=== PATIENT | male | born 1955 | race Two or more races ===

== ENCOUNTER 2017-02-19 11:31 | Emergency (ER) | payer MEDICARE, OTHER ==
[~2017-02-19] VITALS: Ht 170.2 cm; Wt 80.0 kg
[~2017-02-19 11:31] MED LIST: ACET-2119 PO; ASPI-1265 PO; ASPI1CPM9 PO; CALC-212 PO; CARV3.122 PO; CHOL10002 PO; CHOL100040 PO; CLOP75TA15 PO; FA/M1TAB; FLO0.4C PO; FURO40TA4 PO; FURO80TA3 PO; GLIP5TAB13 PO; HUM7525 SQ; HYDR-3965 PO; INSU100V12 SQ; INSULIN LISPRO SUBCUT; LACT10SO PO; LANTUS SQ; LYR75C PO; MIDO2.5T14 PO; NIA500ERT PO; ONDA4TAB9 SL; PANT-47 PO; PHO667C PO; POLY17PO10 PO; PRAV80TA3 PO; PREG300C PO; SODI325T PO; SODI650T29 PO; TACR0.5C20 PO; TACR5CAP8 PO
[2017-02-19 12:20] LABS: ALBUMIN 2.9 G/DL (3.4-5.0); ANION GAP 4 (8-16); BLOOD UREA NITROGEN 12 MG/DL (7-18); BUN/CREATININE RATIO 3.4 (5.4-32.0); CALCIUM 9.5 MG/DL (8.5-10.1); CHLORIDE 104 MMOL/L (99-107); CREATININE 3.58 MG/DL (0.60-1.10); GLUCOSE 52 MG/DL (70-104); POTASSIUM 3.7 MMOL/L (3.5-5.1); SODIUM 144 MMOL/L (135-145); TOTAL CARBON DIOXIDE 36.5 MMOL/L (24-32); eGFR 17 ML/MIN
[2017-02-19 12:32] LABS: BASOPHILS % (AUTO) 0.4 % (0-1); EOSINOPHILS # (AUTO) 0.2 X10'3 (0-0.9); EOSINOPHILS % (AUTO) 4.1 % (0-6); HEMATOCRIT 33.1 % (42.0-52.0); HEMOGLOBIN 10.8 g/dl (14.0-17.9); LYMPHOCYTES % (AUTO) 19.5 % (21-51); MEAN CORPUSCULAR HEMOGLOBIN 30.8 PG (27.0-31.0); MEAN CORPUSCULAR HGB CONC 32.6 % (33.0-36.5); MEAN CORPUSCULAR VOLUME 94.6 FL (78-98); MEAN PLATELET VOLUME 10.1 FL (7.4-10.4); MONOCYTES # (AUTO) 0.5 X10'3 (0-0.9); MONOCYTES % (AUTO) 10.4 % (2-12); NEUTROPHILS # (AUTO) 3.3 X10'3 (1.8-7.7); NEUTROPHILS % (AUTO) 65.6 % (42-75); PLATELET COUNT 102 X10'3 (140-440); RED CELL DISTRIBUTION WIDTH 16.8 % (11.5-14.5); WHITE BLOOD COUNT 5.1 X10'3 (4.5-11.0)
[2017-02-19] MEDS ORDERED: ipratropium/albuterol 3ml nebule NEB ONE (12:55)
[2017-02-19 13:59] VITALS: BP 132/57
== END 2017-02-19 14:00 | disposition home or self-care (01) ==
LOC: ER 11:32
DX: J98.01 Acute bronchospasm (principal); I12.0 Hypertensive chronic kidney disease with stage 5 chronic kidney disease or end stage renal disease; N18.6 End stage renal disease; E11.22 Type 2 diabetes mellitus with diabetic chronic kidney disease; K21.9 Gastro-esophageal reflux disease without esophagitis; I25.10 Atherosclerotic heart disease of native coronary artery without angina pectoris; Z86.73 Personal history of transient ischemic attack (TIA), and cerebral infarction without residual deficits; Z94.0 Kidney transplant status; Z95.1 Presence of aortocoronary bypass graft; Z99.2 Dependence on renal dialysis; Z88.8 Allergy status to other drugs, medicaments and biological substances; Z88.1 Allergy status to other antibiotic agents; Z91.013 Allergy to seafood; Z79.4 Long term (current) use of insulin; Z79.82 Long term (current) use of aspirin
CPT/HCPCS: 36415; 71045; 80048; 85025; 94640; 94760; 99285

== ENCOUNTER 2017-03-01 09:28 | Inpatient (IN) | payer MEDICARE, OTHER ==
[~2017-03-01] VITALS: Ht 172.7 cm; Wt 180.0 kg
[2017-03-01] MEDS ORDERED: normal saline 1000ml 1,000 ML IV ONE (09:59)
[2017-03-01 10:37] LABS: BASOPHILS % (AUTO) 0.3 % (0-1); EOSINOPHILS # (AUTO) 0.1 X10'3 (0-0.9); EOSINOPHILS % (AUTO) 0.5 % (0-6); HEMATOCRIT 29.5 % (42.0-52.0); HEMOGLOBIN 10.3 g/dl (14.0-17.9); LYMPHOCYTES # (AUTO) 0.4 X10'3 (1.1-4.8); MEAN CORPUSCULAR HEMOGLOBIN 32.5 PG (27.0-31.0); MEAN CORPUSCULAR HGB CONC 34.8 % (33.0-36.5); MEAN CORPUSCULAR VOLUME 93.6 FL (78-98); MEAN PLATELET VOLUME 10.1 FL (7.4-10.4); MONOCYTES # (AUTO) 0.8 X10'3 (0-0.9); NEUTROPHILS # (AUTO) 10.7 X10'3 (1.8-7.7); NEUTROPHILS % (AUTO) 89.2 % (42-75); PLATELET COUNT 119 X10'3 (140-440); RED BLOOD COUNT 3.16 X10'6 (4.70-6.10); RED CELL DISTRIBUTION WIDTH 15.8 % (11.5-14.5)
[2017-03-01 10:41] LABS: INR 1.1 INR; PARTIAL THROMBOPLASTIN TIME 34 SECONDS (22-32); PROTHROMBIN TIME 11.4 SECONDS (9.0-12.0)
[2017-03-01 10:55] LABS: ALANINE AMINOTRANSFERASE 17 U/L (12-78); ALBUMIN 2.5 G/DL (3.4-5.0); ALBUMIN/GLOBULIN RATIO 0.5 (1.1-1.5); ALKALINE PHOSPHATASE 90 IU/L (46-116); ANION GAP 7 (8-16); ASPARTATE AMINO TRANSFERASE 13 U/L (10-37); BILIRUBIN,TOTAL 0.5 MG/DL (0.1-1.0); BLOOD UREA NITROGEN 16 MG/DL (7-18); BUN/CREATININE RATIO 4.2 (5.4-32.0); CALCIUM 8.9 MG/DL (8.5-10.1); CHLORIDE 107 MMOL/L (99-107); ETHANOL < 0.010 GM/DL (0.0-0.010); GLUCOSE 96 MG/DL (70-104); MAGNESIUM 2.2 MG/DL (1.5-2.4); PHOSPHORUS 1.8 MG/DL (2.3-4.5); POTASSIUM 3.8 MMOL/L (3.5-5.1); SODIUM 148 MMOL/L (135-145); TOTAL CARBON DIOXIDE 34.1 MMOL/L (24-32); TOTAL PROTEIN 7.2 G/DL (6.4-8.2); eGFR 16 ML/MIN
[2017-03-01 10:58] LABS: ACETAMINOPHEN < 2.0 UG/ML (10-30)
[2017-03-01 11:17] LABS: ABG BASE EXCESS 8.9 mmol/L (-2.0-3.0); ABG HCO3 32.9 mmol/L (22.0-26.0); ABG OXYGEN SATURATION 95.4 % (95-98); ABG PCO2 (T) 43.2 mmHg (35.0-48.0); ABG PO2 (T) 77.7 mmHg (83-108); ALLEN'S TEST Positive; FCOHb 0.2 % (0.5-1.5); FLOW 2 L/min; FMetHb 0.2 % (0.3-1.12); TOTAL HEMOGLOBIN 10.6 G/dl (14.0-18.0)
[2017-03-01] MEDS ORDERED: vancomycin/NS 1 GM ADD-VANTAGE 250 ML IV ONE (11:25)
[2017-03-01] MEDS ORDERED: normal saline 1000ML IV soln IVB ONE (11:25)
[2017-03-01 12:05] LABS: COLOR,URINE Yellow (Yellow); GLUCOSE, URINE Negative (Neg); KETONES,URINE Negative (Neg); LEUKOCYTE ESTERASE ,URINE Moderate (Neg); NITRITES, URINE Negative (Neg); OCCULT BLOOD,URINE Small (Neg); PH,URINE >=9.0 (4.8-8.0); PROTEIN,URINE 100 mg/dl (Neg); UROBILINOGEN,URINE 0.2 E.U/dL (0.2-1.0)
[2017-03-01 12:09] LABS: URINE AMPHETAMINE SCREEN NEGATIVE (Neg); URINE BARBITUATE SCREEN NEGATIVE (Neg); URINE BENZODIAZEPINES SCREEN NEGATIVE (Neg); URINE CANNABINOID SCREEN NEGATIVE (Neg); URINE COCAINE SCREEN NEGATIVE (Neg); URINE METHADONE SCREEN NEGATIVE (Neg); URINE OPIATE SCREEN NEGATIVE (Neg); URINE PHENCYCLIDINE SCREEN NEGATIVE (Neg)
[2017-03-01 12:24] LABS: OCCULT BLOOD STOOL NEGATIVE (Neg)
[2017-03-01 12:27] LABS: CLARITY,URINE Slightly Cloudy (Clear); UA COLLECTION TYPE FOLEY CATH
[2017-03-01 12:29] LABS: BACTERIA,URINE FEW /HPF (Neg); MUCUS STRANDS FEW /LPF (Neg); RBC,URINE 0-2 /HPF (0-2); SQUAMOUS EPITHELIAL CELL,UR FEW /LPF (FEW)
[2017-03-01 12:30] LABS: TRANSITIONAL EPI CELLS,URINE FEW /HPF
[2017-03-01] MEDS ORDERED: acetaminophen 325mg tablet PO PRN (13:05)
[2017-03-01] MEDS ORDERED: HYDROmorphone 1 mg/ml syringe IV PRN (13:05)
[2017-03-01] MEDS ORDERED: bisacodyl 10mg suppository rectal RC PRN (13:05)
[2017-03-01] MEDS ORDERED: diphenhydrAMINE 25mg capsule PO PRN (13:05)
[2017-03-01] MEDS ORDERED: HYDROcodone/acetaminophen 5mg/325mg tablet PO PRN (13:05)
[2017-03-01] MEDS ORDERED: ondansetron/PF 4mg/2ml inj IV PRN (13:05)
[2017-03-01] MEDS ORDERED: levoFLOXACIN-Levaquin 250mg/D5 50 ML IV STA (13:08)
[2017-03-01] MEDS ORDERED: SEVE800T8 PO (13:46)
[2017-03-01] MEDS ORDERED: ALB0.5UD IH (13:46)
[2017-03-01] MEDS ORDERED: POLY17PO10 PO (14:44)
[2017-03-01] MEDS ORDERED: FA/M1TAB (14:44)
[2017-03-01] MEDS ORDERED: dextrose 50%-water 50ml dispensing syringe IV ONE ×2 (15:13→15:25)
[2017-03-01] MEDS ORDERED: sodium chloride inj. 154 MEQ in Dextrose 10%-water IV solution 961.5 ML IV SCH (15:35)
[2017-03-01] MEDS: Dextrose 10%-water IV solution 1,000 ML IV SCH (16:03)
[2017-03-01] MEDS ORDERED: morphine 2 MG/ML inj. syringe IV PRN (17:05)
[2017-03-01] MEDS: docusate sod 100mg capsule PO SCH (20:00)
[2017-03-01] MEDS ORDERED: polyethylene glycol 3350 17gm powd pack PO PRN (20:15)
[2017-03-01] MEDS ORDERED: glucagon, human recombinant 1mg kit SUBCUT PRN (20:15)
[2017-03-01] MEDS ORDERED: dextrose 50%-water 50ml dispensing syringe IV PRN ×2 (20:15)
[2017-03-01] MEDS ORDERED: MESSAGE TO PHARMACY PO ONE (20:15)
[2017-03-01] MEDS ORDERED: dextrose ORAL solution 15 GM/59 ML bottle PO PRN ×2 (20:15)
[2017-03-01] MEDS ORDERED: non-formulary drug (Albuterol Sulfate Nebs* (Proventil Nebs*) 2.5 MG) IH PRN (20:15)
[2017-03-01] MEDS ORDERED: temazepam 15mg capsule PO PRN (21:00)
[2017-03-01] MEDS: insulin glargine (Lantus) pen - multi-dose SQ SCH (21:00)
[2017-03-01] MEDS: atorvastatin 20mg tablet PO SCH (21:00)
[2017-03-01] MEDS ORDERED: FUROSEMIDE 80 MG PO SCH (21:00)
[2017-03-01] MEDS ORDERED: non-formulary drug (Pravastatin Sodium 1 TAB) PO SCH (21:00)
[2017-03-01] MEDS: midodrine tablet 2.5 MG TABLET PO SCH (22:33)
[2017-03-01] MEDS: furosemide 40mg tablet PO SCH (22:33)
[2017-03-01] MEDS: tacrolimus anhydrous 0.5mg capsule PO SCH (22:34)
[2017-03-02] MEDS ORDERED: midodrine tablet 2.5 MG TABLET PO SCH (02:00)
[2017-03-02] MEDS ORDERED: MIDODRINE HCL 5 MG PO SCH (02:00)
[2017-03-02] MEDS: midodrine tablet 2.5 MG TABLET PO SCH ×5 (02:00→20:25)
[2017-03-02 07:14] LABS: BASOPHILS % (AUTO) 0.5 % (0-1); EOSINOPHILS # (AUTO) 0.1 X10'3 (0-0.9); HEMOGLOBIN 9.3 g/dl (14.0-17.9); LYMPHOCYTES # (AUTO) 0.7 X10'3 (1.1-4.8); MEAN CORPUSCULAR HEMOGLOBIN 31.2 PG (27.0-31.0); MEAN CORPUSCULAR HGB CONC 33.1 % (33.0-36.5); MEAN CORPUSCULAR VOLUME 94.2 FL (78-98); MEAN PLATELET VOLUME 9.7 FL (7.4-10.4); MONOCYTES # (AUTO) 0.7 X10'3 (0-0.9); MONOCYTES % (AUTO) 11.7 % (2-12); NEUTROPHILS # (AUTO) 4.1 X10'3 (1.8-7.7); NEUTROPHILS % (AUTO) 72.8 % (42-75); PLATELET COUNT 112 X10'3 (140-440); RED BLOOD COUNT 2.98 X10'6 (4.70-6.10); RED CELL DISTRIBUTION WIDTH 17.6 % (11.5-14.5); WHITE BLOOD COUNT 5.6 X10'3 (4.5-11.0)
[2017-03-02 07:31] LABS: ALBUMIN 2.2 G/DL (3.4-5.0); ANION GAP 7 (8-16); BLOOD UREA NITROGEN 22 MG/DL (7-18); BUN/CREATININE RATIO 4.7 (5.4-32.0); CALCIUM 9.5 MG/DL (8.5-10.1); CHLORIDE 108 MMOL/L (99-107); GLUCOSE 153 MG/DL (70-104); MAGNESIUM 2.2 MG/DL (1.5-2.4); PHOSPHORUS 3.4 MG/DL (2.3-4.5); SODIUM 146 MMOL/L (135-145); TOTAL CARBON DIOXIDE 31.1 MMOL/L (24-32); eGFR 13 ML/MIN
[2017-03-02] MEDS: levoFLOXACIN-Levaquin 250mg/D5 50 ML IV SCH (07:53)
[2017-03-02] MEDS: sodium bicarbonate 650mg tablet PO SCH ×2 (07:54→20:28)
[2017-03-02] MEDS: aspirin/dipyridamole 25mg/200mg SR. capsule PO SCH ×2 (07:55→20:28)
[2017-03-02] MEDS: tacrolimus anhydrous 0.5mg capsule PO SCH ×2 (07:58→20:26)
[2017-03-02] MEDS ORDERED: non-formulary drug (Pregabalin (Lyrica) 1 CAP) PO SCH (08:00)
[2017-03-02] MEDS ORDERED: epoetin 20,000 units/ml inj IV ONE ×2 (08:00→11:30)
[2017-03-02] MEDS ORDERED: tacrolimus anhydrous 0.5mg capsule PO SCH (08:00)
[2017-03-02] MEDS ORDERED: albumin (human) 25% 100ml IV 100 ML IV PRN (08:00)
[2017-03-02] MEDS: sevelamer carbonate 800mg tablet PO SCH ×3 (08:00→17:00)
[2017-03-02] MEDS ORDERED: non-formulary drug (Cholecalciferol (Vitamin D3) (Vitamin D3) 1 TAB) PO SCH (08:00)
[2017-03-02] MEDS: vitamin D (cholecalciferol) 1,000 unit tablet PO SCH (08:12)
[2017-03-02] MEDS: docusate sod 100mg capsule PO SCH ×2 (08:12→20:26)
[2017-03-02] MEDS: tamsulosin 0.4mg capsule PO SCH ×2 (08:12→20:48)
[2017-03-02] MEDS: furosemide 40mg tablet PO SCH ×3 (08:12→20:26)
[2017-03-02] MEDS: pregabalin 75mg capsule PO SCH ×2 (08:14→20:27)
[2017-03-02] MEDS: pantoprazole 40mg Tablet.DR PO SCH (08:14)
[2017-03-02] MEDS: Dextrose 10%-water IV solution 1,000 ML IV SCH ×2 (09:04→12:19)
[2017-03-02 09:30] VITALS: BP 146/76
[2017-03-02] MEDS ORDERED: LIDOcaine 1% (10mg/ml) 2ml vial SQ ONE (09:45)
[2017-03-02] MEDS: albuterol 2.5 MG/3 ML nebule NEB PRN (10:02)
[2017-03-02 11:00] VITALS: BP 112/48
[2017-03-02 15:00] VITALS: BP 112/58
[2017-03-02 15:24] VITALS: BP 117/51
[2017-03-02] MEDS: lactobacillus rhamnosus 10,000 MMU CELLS/CAPSULE PO SCH (17:30)
[2017-03-02 19:00] VITALS: BP 133/75
[2017-03-02] MEDS: atorvastatin 20mg tablet PO SCH (20:26)
[2017-03-02] MEDS: insulin glargine (Lantus) pen - multi-dose SQ SCH (21:00)
[2017-03-02 22:00] VITALS: BP 120/57
[2017-03-03] MEDS: midodrine tablet 2.5 MG TABLET PO SCH ×4 (02:00→20:03)
[2017-03-03 03:00] VITALS: BP 93/58
[2017-03-03 06:00] VITALS: BP 123/64
[2017-03-03] MEDS: sevelamer carbonate 800mg tablet PO SCH ×3 (07:00→17:51)
[2017-03-03 07:01] LABS: BASOPHILS % (AUTO) 0.3 % (0-1); EOSINOPHILS # (AUTO) 0.2 X10'3 (0-0.9); EOSINOPHILS % (AUTO) 2.7 % (0-6); HEMATOCRIT 26.1 % (42.0-52.0); LYMPHOCYTES # (AUTO) 1.1 X10'3 (1.1-4.8); LYMPHOCYTES % (AUTO) 19.9 % (21-51); MEAN CORPUSCULAR HEMOGLOBIN 31.5 PG (27.0-31.0); MEAN CORPUSCULAR HGB CONC 34.3 % (33.0-36.5); MEAN CORPUSCULAR VOLUME 91.7 FL (78-98); MEAN PLATELET VOLUME 10.3 FL (7.4-10.4); MONOCYTES # (AUTO) 0.7 X10'3 (0-0.9); MONOCYTES % (AUTO) 13.6 % (2-12); NEUTROPHILS # (AUTO) 3.5 X10'3 (1.8-7.7); NEUTROPHILS % (AUTO) 63.5 % (42-75); PLATELET COUNT 116 X10'3 (140-440); RED BLOOD COUNT 2.85 X10'6 (4.70-6.10); RED CELL DISTRIBUTION WIDTH 17.6 % (11.5-14.5); WHITE BLOOD COUNT 5.5 X10'3 (4.5-11.0)
[2017-03-03 07:22] LABS: ALBUMIN 2.3 G/DL (3.4-5.0); ANION GAP 6 (8-16); BLOOD UREA NITROGEN 17 MG/DL (7-18); BUN/CREATININE RATIO 4.6 (5.4-32.0); CALCIUM 9.1 MG/DL (8.5-10.1); CHLORIDE 103 MMOL/L (99-107); GLUCOSE 283 MG/DL (70-104); PHOSPHORUS 2.3 MG/DL (2.3-4.5); POTASSIUM 3.9 MMOL/L (3.5-5.1); SODIUM 140 MMOL/L (135-145); eGFR 17 ML/MIN
[2017-03-03] MEDS: docusate sod 100mg capsule PO SCH ×2 (08:42→20:02)
[2017-03-03] MEDS: tamsulosin 0.4mg capsule PO SCH ×2 (08:42→20:32)
[2017-03-03] MEDS: tacrolimus anhydrous 0.5mg capsule PO SCH ×2 (08:43→20:03)
[2017-03-03] MEDS: furosemide 40mg tablet PO SCH ×3 (08:43→20:03)
[2017-03-03] MEDS: pantoprazole 40mg Tablet.DR PO SCH (08:43)
[2017-03-03] MEDS: aspirin/dipyridamole 25mg/200mg SR. capsule PO SCH ×2 (08:43→20:02)
[2017-03-03] MEDS: vitamin D (cholecalciferol) 1,000 unit tablet PO SCH (08:43)
[2017-03-03] MEDS: lactobacillus rhamnosus 10,000 MMU CELLS/CAPSULE PO SCH ×2 (08:43→17:51)
[2017-03-03] MEDS: pregabalin 75mg capsule PO SCH ×2 (08:44→20:02)
[2017-03-03] MEDS: sodium bicarbonate 650mg tablet PO SCH ×2 (08:44→20:03)
[2017-03-03] MEDS: levoFLOXACIN-Levaquin 250mg/D5 50 ML IV SCH (08:44)
[2017-03-03] MEDS: albuterol 2.5 MG/3 ML nebule NEB PRN (09:03)
[2017-03-03 11:00] VITALS: BP 137/59
[2017-03-03] MEDS: insulin Lispro (HumaLOG) vial - multi-dose SQ SCH ×2 (14:14→20:08)
[2017-03-03 15:00] VITALS: BP 159/65
[2017-03-03 19:00] VITALS: BP 155/71
[2017-03-03] MEDS: atorvastatin 20mg tablet PO SCH (20:02)
[2017-03-03 21:00] VITALS: BP 156/71
[2017-03-03] MEDS: insulin glargine (Lantus) pen - multi-dose SQ SCH (21:38)
[2017-03-04] MEDS: midodrine tablet 2.5 MG TABLET PO SCH ×3 (01:38→12:38)
[2017-03-04 03:00] VITALS: BP 152/68
[2017-03-04 06:00] VITALS: BP 133/69
[2017-03-04 06:30] LABS: BASOPHILS % (AUTO) 0.3 % (0-1); EOSINOPHILS # (AUTO) 0.2 X10'3 (0-0.9); EOSINOPHILS % (AUTO) 3.2 % (0-6); HEMOGLOBIN 9.2 g/dl (14.0-17.9); LYMPHOCYTES # (AUTO) 1.1 X10'3 (1.1-4.8); LYMPHOCYTES % (AUTO) 17.7 % (21-51); MEAN CORPUSCULAR HEMOGLOBIN 30.9 PG (27.0-31.0); MEAN CORPUSCULAR VOLUME 93.9 FL (78-98); MONOCYTES # (AUTO) 0.8 X10'3 (0-0.9); MONOCYTES % (AUTO) 12.8 % (2-12); PLATELET COUNT 111 X10'3 (140-440); RED BLOOD COUNT 2.99 X10'6 (4.70-6.10); WHITE BLOOD COUNT 6.1 X10'3 (4.5-11.0)
[2017-03-04] MEDS: sevelamer carbonate 800mg tablet PO SCH ×3 (07:00→12:38)
[2017-03-04 07:04] LABS: ANION GAP 8 (8-16); BLOOD UREA NITROGEN 27 MG/DL (7-18); CHLORIDE 105 MMOL/L (99-107); GLUCOSE 211 MG/DL (70-104); POTASSIUM 3.9 MMOL/L (3.5-5.1); SODIUM 144 MMOL/L (135-145); TOTAL CARBON DIOXIDE 30.7 MMOL/L (24-32)
[2017-03-04 07:05] LABS: ALBUMIN 2.3 G/DL (3.4-5.0); CALCIUM 9.5 MG/DL (8.5-10.1); MAGNESIUM 2.1 MG/DL (1.5-2.4); PHOSPHORUS 3.1 MG/DL (2.3-4.5); eGFR 13 ML/MIN
[2017-03-04] MEDS: vitamin D (cholecalciferol) 1,000 unit tablet PO SCH (08:00)
[2017-03-04] MEDS ORDERED: normal saline 1000ml 250 ML IV PRN (09:19)
[2017-03-04] MEDS ORDERED: epoetin 20,000 units/ml inj IV ONE (09:20)
[2017-03-04] MEDS ORDERED: heparin 1,000 units/ml 10ml inj IV ONE (09:20)
[2017-03-04] MEDS ORDERED: LIDOcaine 1% (10mg/ml) 2ml vial SQ ONE (09:20)
[2017-03-04] MEDS: lactobacillus rhamnosus 10,000 MMU CELLS/CAPSULE PO SCH (09:32)
[2017-03-04] MEDS: tacrolimus anhydrous 0.5mg capsule PO SCH (09:33)
[2017-03-04] MEDS: furosemide 40mg tablet PO SCH ×2 (09:33→12:33)
[2017-03-04] MEDS: docusate sod 100mg capsule PO SCH (09:34)
[2017-03-04] MEDS: sodium bicarbonate 650mg tablet PO SCH (09:34)
[2017-03-04] MEDS: tamsulosin 0.4mg capsule PO SCH (09:34)
[2017-03-04] MEDS: pregabalin 75mg capsule PO SCH (09:34)
[2017-03-04] MEDS: pantoprazole 40mg Tablet.DR PO SCH (09:34)
[2017-03-04] MEDS: levoFLOXACIN-Levaquin 250mg/D5 50 ML IV SCH (09:35)
[2017-03-04] MEDS: aspirin/dipyridamole 25mg/200mg SR. capsule PO SCH (09:44)
[2017-03-04] MEDS: insulin Lispro (HumaLOG) vial - multi-dose SQ SCH ×2 (09:56→12:45)
[2017-03-04 11:00] VITALS: BP 92/47
== END 2017-03-04 16:20 | disposition home health service (06) | DRG 637 ==
LOC: ER 09:28 → ED HOLD 13:04 → EDBEDREQSVC 18:43 → PCU 3S 03-02 08:59
PROVIDERS: ADMIT Internal Medicine Critical Care Medicine; ATTEND Internal Medicine Critical Care Medicine
PROC: 5A1D70Z Performance of Urinary Filtration, Intermittent, Less than 6 Hours Per Day (ICD-10-PCS; 2017-03-02)
PROC: 5A09357 Assistance with Respiratory Ventilation, Less than 24 Consecutive Hours, Continuous Positive Airway Pressure (ICD-10-PCS; principal; 2017-03-03)
PROC: 5A1D70Z Performance of Urinary Filtration, Intermittent, Less than 6 Hours Per Day (ICD-10-PCS; 2017-03-04)
DX: E11.649 Type 2 diabetes mellitus with hypoglycemia without coma (principal); G93.41 Metabolic encephalopathy; E87.3 Alkalosis; J18.9 Pneumonia, unspecified organism; T86.12 Kidney transplant failure; E11.22 Type 2 diabetes mellitus with diabetic chronic kidney disease; I12.0 Hypertensive chronic kidney disease with stage 5 chronic kidney disease or end stage renal disease; Z68.44 Body mass index [BMI] 60.0-69.9, adult; N18.6 End stage renal disease; K21.9 Gastro-esophageal reflux disease without esophagitis; E66.9 Obesity, unspecified; D64.9 Anemia, unspecified; I25.10 Atherosclerotic heart disease of native coronary artery without angina pectoris; Z99.2 Dependence on renal dialysis; Z95.1 Presence of aortocoronary bypass graft; Z91.013 Allergy to seafood; Z88.8 Allergy status to other drugs, medicaments and biological substances; Z91.018 Allergy to other foods; Z79.82 Long term (current) use of aspirin; Z79.4 Long term (current) use of insulin; Z79.899 Other long term (current) drug therapy; Z86.73 Personal history of transient ischemic attack (TIA), and cerebral infarction without residual deficits; Y92.89 Other specified places as the place of occurrence of the external cause; Y83.0 Surgical operation with transplant of whole organ as the cause of abnormal reaction of the patient, or of later complication, without mention of misadventure at the time of the procedure
CPT/HCPCS: 36415; 36600; 70450; 71045; 80048; 80053; 80305; 80320; 80329; 81001; 82272; 82803; 82948; 83036; 83605; 83735; 84100; 84443; 84484; 85018; 85025; 85610; 85730; 86885; 86900; 86901; 87040; 87070; 87088; 87502; 87503; 92616; 93005; 94640; 94760; 96361; 96365; 99291; A6212; A6213; A6402; A6449; C1758; G0257; J0885; J1644; J1815; J1956; J3370; J3490; J7030; J7131; J7507

== ENCOUNTER 2018-01-29 12:20 | Emergency (ER) | payer MEDICARE, OTHER ==
[~2018-01-29] VITALS: Ht 172.7 cm; Wt 82.0 kg
[~2018-01-29 12:20] MED LIST changes: -ACET-2119 PO; +ALB0.5UD IH; -ASPI-1265 PO; -CALC-212 PO; -CARV3.122 PO; -CHOL100040 PO; -CLOP75TA15 PO; -FURO40TA4 PO; -GLIP5TAB13 PO; -HYDR-3965 PO; -INSULIN LISPRO SUBCUT; -LACT10SO PO; -LANTUS SQ; -LYR75C PO; -NIA500ERT PO; -ONDA4TAB9 SL; -PHO667C PO; +SEVE800T8 PO; -SODI325T PO; -TACR5CAP8 PO
[2018-01-29] MEDS ORDERED: ipratropium/albuterol 3ml nebule NEB ONE (12:40)
[2018-01-29 13:18] LABS: BASOPHILS % (AUTO) 0.4 % (0-1); EOSINOPHILS # (AUTO) 0.5 X10'3 (0-0.9); EOSINOPHILS % (AUTO) 9.2 % (0-6); HEMOGLOBIN 11.9 g/dl (14.0-17.9); LYMPHOCYTES % (AUTO) 20.6 % (21-51); MEAN CORPUSCULAR HEMOGLOBIN 32.6 PG (27.0-31.0); MEAN CORPUSCULAR VOLUME 98.9 FL (78-98); MONOCYTES # (AUTO) 0.5 X10'3 (0-0.9); MONOCYTES % (AUTO) 9.9 % (2-12); NEUTROPHILS # (AUTO) 2.9 X10'3 (1.8-7.7); NEUTROPHILS % (AUTO) 59.9 % (42-75); PLATELET COUNT 89 X10'3 (140-440); RED BLOOD COUNT 3.65 X10'6 (4.70-6.10); RED CELL DISTRIBUTION WIDTH 14.9 % (11.5-14.5); WHITE BLOOD COUNT 4.9 X10'3 (4.5-11.0)
[2018-01-29 13:34] LABS: ALANINE AMINOTRANSFERASE 19 U/L (12-78); ALBUMIN 3.4 G/DL (3.4-5.0); ALBUMIN/GLOBULIN RATIO 0.8 (1.1-1.5); ALKALINE PHOSPHATASE 114 IU/L (46-116); ANION GAP 8 (8-16); ASPARTATE AMINO TRANSFERASE 11 U/L (10-37); BILIRUBIN,TOTAL 0.4 MG/DL (0.1-1.0); BLOOD UREA NITROGEN 25 MG/DL (7-18); BUN/CREATININE RATIO 5.6 (5.4-32.0); CALCIUM 9.2 MG/DL (8.5-10.1); CHLORIDE 99 MMOL/L (99-107); CREATININE 4.49 MG/DL (0.60-1.10); GLUCOSE 174 MG/DL (70-104); POTASSIUM 4.9 MMOL/L (3.5-5.1); PROTHROMBIN TIME 10.6 SECONDS (9.0-12.0); SODIUM 138 MMOL/L (135-145); TOTAL CARBON DIOXIDE 30.9 MMOL/L (24-32); TOTAL PROTEIN 7.8 G/DL (6.4-8.2); eGFR 13 ML/MIN
[2018-01-29 13:36] LABS: LACTIC SEPSIS 1.1 MMOL/L (0.4-2.0)
[2018-01-29 13:43] LABS: ETHANOL < 0.010 GM/DL (0.0-0.010)
[2018-01-29 14:59] VITALS: BP 102/47
== END 2018-01-29 17:11 | disposition home or self-care (01) ==
LOC: ER 12:21
DX: R06.02 Shortness of breath (principal); I25.10 Atherosclerotic heart disease of native coronary artery without angina pectoris; K21.9 Gastro-esophageal reflux disease without esophagitis; I12.0 Hypertensive chronic kidney disease with stage 5 chronic kidney disease or end stage renal disease; E11.22 Type 2 diabetes mellitus with diabetic chronic kidney disease; N18.6 End stage renal disease; F41.9 Anxiety disorder, unspecified; Z88.8 Allergy status to other drugs, medicaments and biological substances; Z91.013 Allergy to seafood; Z91.018 Allergy to other foods; Z79.82 Long term (current) use of aspirin; Z79.4 Long term (current) use of insulin; Z79.899 Other long term (current) drug therapy; Z99.2 Dependence on renal dialysis; Z86.73 Personal history of transient ischemic attack (TIA), and cerebral infarction without residual deficits; Z87.891 Personal history of nicotine dependence
CPT/HCPCS: 36415; 71045; 80053; 80320; 82140; 83605; 84443; 84484; 85025; 85610; 87040; 93005; 94640; 94760; 99284

== ENCOUNTER 2018-04-16 08:46 | Day surgery (SDC) | payer MEDICARE, OTHER ==
[~2018-04-16] VITALS: Ht 170.2 cm; Wt 78.0 kg
[2018-04-16 09:00] VITALS: BP 141/83
[2018-04-16] MEDS ORDERED: ALBU8HFA PO (09:29)
[2018-04-16 10:13] LABS: BASOPHILS % (AUTO) 0.5 % (0-1); EOSINOPHILS # (AUTO) 0.4 X10'3 (0-0.9); EOSINOPHILS % (AUTO) 5.1 % (0-6); HEMOGLOBIN 12.2 g/dl (14.0-17.9); LYMPHOCYTES # (AUTO) 1.1 X10'3 (1.1-4.8); LYMPHOCYTES % (AUTO) 16.1 % (21-51); MEAN CORPUSCULAR HGB CONC 32.9 g/dL (33.0-36.5); MEAN CORPUSCULAR VOLUME 100.2 FL (78-98); MEAN PLATELET VOLUME 10.1 FL (7.4-10.4); MONOCYTES # (AUTO) 0.6 X10'3 (0-0.9); MONOCYTES % (AUTO) 8.5 % (2-12); NEUTROPHILS # (AUTO) 4.9 X10'3 (1.8-7.7); NEUTROPHILS % (AUTO) 69.8 % (42-75); PLATELET COUNT 72 X10'3 (140-440); RED BLOOD COUNT 3.69 X10'6 (4.70-6.10); RED CELL DISTRIBUTION WIDTH 17.5 % (11.5-14.5)
[2018-04-16] MEDS ORDERED: LIDOcaine 1%/PF 5ML 10 MG/ML VIAL ONE (10:18)
[2018-04-16] MEDS ORDERED: iohexol 300mg/ml 100ml inj. ONE (10:18)
[2018-04-16] MEDS ORDERED: midazolam 2 mg/2 ml injection IV PRN (10:25)
[2018-04-16] MEDS ORDERED: LIDOcaine 1%/PF 5ML 10 MG/ML VIAL SQ ONE (10:25)
[2018-04-16] MEDS ORDERED: fentaNYL/PF 50MCG/1 ML 2ML syringe IV PRN (10:25)
[2018-04-16] MEDS ORDERED: heparin 1,000 UNITS/NS 500ml 500 ML ICATH ONE (10:25)
[2018-04-16 10:26] LABS: ALBUMIN 3.6 G/DL (3.4-5.0); ANION GAP 8 (8-16); BLOOD UREA NITROGEN 33 MG/DL (7-18); BUN/CREATININE RATIO 5.9 (5.4-32.0); CALCIUM 10.2 MG/DL (8.5-10.1); CHLORIDE 104 MMOL/L (99-107); CREATININE 5.57 MG/DL (0.60-1.10); GLUCOSE 107 MG/DL (70-104); POTASSIUM 4.9 MMOL/L (3.5-5.1); SODIUM 144 MMOL/L (135-145); TOTAL CARBON DIOXIDE 32.1 MMOL/L (24-32); eGFR 10 ML/MIN
[2018-04-16 10:27] LABS: PROTHROMBIN TIME 10.5 SECONDS (9.0-12.0)
[2018-04-16] MEDS ORDERED: heparin 1,000 UNITS/NS 500ml 500 ML ONE (10:33)
[2018-04-16] MEDS ORDERED: fentaNYL/PF 50MCG/1 ML 2ML syringe ONE (10:33)
[2018-04-16] MEDS ORDERED: midazolam 2 mg/2 ml injection ONE (10:33)
[2018-04-16 12:05] VITALS: BP 123/71
[2018-04-16 12:24] VITALS: BP 126/92
[2018-04-16 12:54] VITALS: BP 121/70
[2018-04-16 13:09] VITALS: BP 118/56
[2018-04-16 13:25] VITALS: BP 142/68
== END 2018-04-16 13:35 | disposition home or self-care (01) ==
LOC: SSTAY O 08:46
PROVIDERS: ATTEND Radiology Diagnostic Radiology
DX: T82.858A Stenosis of other vascular prosthetic devices, implants and grafts, initial encounter (principal); I25.10 Atherosclerotic heart disease of native coronary artery without angina pectoris; K21.9 Gastro-esophageal reflux disease without esophagitis; E11.22 Type 2 diabetes mellitus with diabetic chronic kidney disease; I12.9 Hypertensive chronic kidney disease with stage 1 through stage 4 chronic kidney disease, or unspecified chronic kidney disease; N18.9 Chronic kidney disease, unspecified; F41.9 Anxiety disorder, unspecified; Z98.890 Other specified postprocedural states; Z86.73 Personal history of transient ischemic attack (TIA), and cerebral infarction without residual deficits; Z95.1 Presence of aortocoronary bypass graft; Z88.8 Allergy status to other drugs, medicaments and biological substances; Z91.013 Allergy to seafood; Z79.82 Long term (current) use of aspirin; Y83.8 Other surgical procedures as the cause of abnormal reaction of the patient, or of later complication, without mention of misadventure at the time of the procedure; Y92.89 Other specified places as the place of occurrence of the external cause; Z79.84 Long term (current) use of oral hypoglycemic drugs
CPT/HCPCS: 36415; 36902; 76937; 80048; 82948; 85025; 85610; C1769; J1644; J2001; J2250; J3010; Q9967; C1725; C1894

== ENCOUNTER 2018-06-17 12:49 | Inpatient (IN) | payer MEDICARE, OTHER | END 2018-06-26 11:31 | disposition E | LOC: SUR 3N 06-25 16:07 → ER 12:49 → ICU 2S 06-19 08:57 → SUR 3N 16:26 | DX: C25.9 Malignant neoplasm of pancreas, unspecified (principal); K85.90 Acute pancreatitis without necrosis or infection, unspecified; N18.6 End stage renal disease; I61.9 Nontraumatic intracerebral hemorrhage, unspecified; R40.20 Unspecified coma; G81.94 Hemiplegia, unspecified affecting left nondominant side; C78.7 Secondary malignant neoplasm of liver and intrahepatic bile duct; C79.31 Secondary malignant neoplasm of brain; R10.9 Unspecified abdominal pain; R16.0 Hepatomegaly, not elsewhere classified; Z86.73 Personal history of transient ischemic attack (TIA), and cerebral infarction without residual deficits ==